=== PATIENT | female | born 1985 | race Caucasian/White ===

== ENCOUNTER 2018-11-22 14:02 | Emergency (ER) | payer OTHER ==
[~2018-11-22] VITALS: Ht 152.4 cm; Wt 68.0 kg
[2018-11-22 14:02] VITALS: BP 113/50
[2018-11-22] MEDS ORDERED: MORPHINE SULFATE 4 MG/ML SYR IM ONE (14:25)
--- NOTE | 2018-11-22 14:29 | NUR ---
PATIENT PRESENTS TO ED WITH c/o pain to left calf s/p dog bite avulsion mid calf 1 inch skin tear superior calf puncture wound noted DENIES N/V/D; SKIN IS PINK/WARM/DRY; AAOX4 WITH EVEN AND STEADY GAIT; LUNGS CLEAR BL; HR EVEN AND REGULAR; PT DENIES ANY FEVER, CP, SOB, OR COUGH AT THIS TIME; PATIENT STATES PAIN OF 10/10 AT THIS TIME; VSS; PATIENT POSITIONED FOR COMFORT; HOB ELEVATED; BEDRAILS UP X2; BED DOWN. ER MD MADE AWARE OF PT STATUS.
[2018-11-22] MEDS ORDERED: LIDOCAINE/EPI 1% 1:100000 20 ML VIAL INJ ONE ×3 (14:45→14:59)
[2018-11-22] MEDS ORDERED: AMPICILLIN/SULBACTAM 3 GM VIAL IM ONE (16:20)
[2018-11-22] MEDS ORDERED: LIDOCAINE 2% 1000 MG/50 ML VIAL INJ ONE (17:00)
--- NOTE | 2018-11-22 17:16 | NUR ---
wound care s/p lac repair----cleaned with moist 4x4 bacitracin applied as written and dressed with kerlix. pt to f/u in 2 days
--- NOTE | 2018-11-22 17:17 | NUR ---
Patient discharged with v/s stable. Written and verbal after care instructions given and explained. Patient alert, oriented and verbalized understanding of instructions. Ambulatory with steady gait. All questions addressed prior to discharge. ID band removed. Patient advised to follow up with PMD. Rx of norco, ibuprofen, bacitracin, augmentin given. Patient educated on indication of medication including possible reaction and side effects. Opportunity to ask questions provided and answered.
[2018-11-22] MEDS ORDERED: BACITRACIN OINT 500 UNITS/GM PKT TP ONE (17:18)
[2018-11-22 17:25] VITALS: BP 133/78
--- NOTE | 2018-11-22 17:25 | NUR ---
refused to fill dog bite report
== END 2018-11-22 17:17 | disposition home or self-care (01) ==
LOC: MED 14:02
DX: S81.812A Laceration without foreign body, left lower leg, initial encounter (principal); W54.0XXA Bitten by dog, initial encounter; Y93.H2 Activity, gardening and landscaping; Y92.096 Garden or yard of other non-institutional residence as the place of occurrence of the external cause; Y99.8 Other external cause status
CPT/HCPCS: 12035; 90471; 90715; 96372; 99284; J0295; J2001; J2270; 99283

== ENCOUNTER 2018-11-25 11:12 | Emergency (ER) | payer OTHER ==
[~2018-11-25] VITALS: Ht 152.4 cm; Wt 63.5 kg
[2018-11-25 11:18] VITALS: BP 98/81
--- NOTE | 2018-11-25 11:25 | NUR ---
33 Y/F BIB [facility] FOR RECHECK WOUND LOWER LEFT CALF S/P DOG BITE X 2 DAYS AGO. 27 STITCHES LEFT LOWER LEG X 2 DAYS AGO HERE . PAIN 6/10 AT THIS TIME WITH TOUCH. PT IS AAOX4, VSS, BED DOWN, BEDRAIL UP X 1, ER MD AWARE AND NOTIFIED OF PT STATUS. MED HX:DENIES
--- NOTE | 2018-11-25 11:45 | NUR ---
Patient being evaluated by DR. PRADO at bedside.
[2018-11-25] MEDS ORDERED: BACITRACIN OINT 500 UNITS/GM PKT TP ONE (11:56)
--- NOTE | 2018-11-25 11:57 | NUR ---
PT GIVEN CRUTCHES AND TEACHING DONE, PT DEMONSTRATED HOW TO USE CRUTCHES
[2018-11-25 12:15] VITALS: BP 106/54
--- NOTE | 2018-11-25 12:15 | NUR ---
Patient discharged with v/s stable. Written and verbal after care instructions given and explained. Patient alert, oriented and verbalized understanding of instructions. Ambulatory with steady gait. All questions addressed prior to discharge. ID band removed. Patient advised to follow up with PMD. Rx of BACITRACIN AND NORCO given. Patient educated on indication of medication including possible reaction and side effects. Opportunity to ask questions provided and answered.
== END 2018-11-25 12:15 | disposition home or self-care (01) ==
LOC: MED 11:12
DX: S81.812D Laceration without foreign body, left lower leg, subsequent encounter (principal); W54.0XXD Bitten by dog, subsequent encounter
CPT/HCPCS: 99283